=== PATIENT | male | born 2000 | race Caucasian/White ===

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

== ENCOUNTER 2023-04-02 11:53 | Outpatient (CLI) | payer BC, SELFPAY ==
--- NOTE | 2023-04-02 12:04 | US_ITS ---
WS: [id number] ULTRASOUND SOFT TISSUE INDICATION: Lump RIGHT lower extremity. RIGHT calf pain. TECHNIQUE: Ultrasound soft tissue LEFT lower leg medially. FINDINGS: Ultrasound LEFT lower leg in the area of concern. No abnormalities in the area of concern. Normal underlying subcutaneous soft tissues. US/US soft tissue/extremity [id number] IMPRESSION: No visualized soft tissue abnormalities in the area of concern
--- NOTE | 2023-04-02 12:04 | USCV_ITS ---
Alfonso Das Age: 22 Gender: M : 2000 Exam Date: 04/02/2023 12:33 Ordering Phys: Chanda Wadsworth Technologist: Gabe Arroyo Exam Location: [facility] [place]_ Indication: Calf pain PROCEDURES: Venous duplex imaging was performed in only the right lower extremity. The following venous structures were evaluated: common femoral vein, profunda vein, proximal portion of the greater saphenous vein, superficial femoral vein, and the popliteal vein. In addition, the posterior tibial and peroneal trunk were evaluated. Serial compression, augmentation maneuvers, and spectral Doppler flow evaluation were performed. FINDINGS: Normal 2-D Doppler and augmentation and compressibility throughout the lower extremity venous structures. Additional imaging through the proximal calf veins also reveals no thrombus. Limited evaluation of the greater saphenous vein is patent with no thrombus. CONCLUSIONS No evidence of right lower extremity DVT. Jacobo Beltran MD (Electronically Signed) Final Date: 02 April 2023 17:06 S
== END 2023-04-02 11:54 | disposition home or self-care (01) ==
PROVIDERS: PCP Nurse Practitioner Family; Visit Provider Registered Nurse
DX: R22.41 Localized swelling, mass and lump, right lower limb (principal); M79.661 Pain in right lower leg
CPT/HCPCS: 76882; 93971